=== PATIENT | female | born 1955 | race Two or more races ===

== ENCOUNTER 2022-01-02 22:02 | Emergency (ER) | payer OTHER, MEDICAID ==
[~2022-01-02] VITALS: Ht 160 cm; Wt 68.0 kg
[2022-01-02 22:19] VITALS: BP_SYST 156
--- NOTE | 2022-01-02 22:23 | NUR ---
PER PATIENT, HAS HAD RIGHT SIDED FLANK PAIN SINCE 12/28 AND SEEN AT AND TREATED FOR GALLSTONES AND UTI AND NOT GETTING BETTER.
[2022-01-02 23:58] LABS: BASOPHILS % (AUTO) 0.5 % (0.0-2.0); EOSINOPHILS # (AUTO) 0.2 K/uL (0.0-0.4); EOSINOPHILS % (AUTO) 3.3 % (0.0-4.0); HEMATOCRIT 36.8 % (36-48); HEMOGLOBIN 12.8 g/dL (12.0-16.0); LYMPHOCYTES # (AUTO) 1.6 K/uL (1.0-5.5); LYMPHOCYTES % (AUTO) 25.9 % (20.5-51.5); MEAN CORPUSCULAR HEMOGLOBIN 31 pg (27-31); MEAN CORPUSCULAR HGB CONC 35 % (32-36); MEAN CORPUSCULAR VOLUME 90 fL (79.0-98.0); MONOCYTES # (AUTO) 0.5 K/uL (0.0-1.0); MONOCYTES % (AUTO) 7.3 % (1.7-9.3); PLATELET COUNT (AUTO) 234 K/uL (130-430); RED BLOOD CELL COUNT(AUTO) 4.09 MIL/uL (4.2-6.2); RED CELL DISTRIBUTION WIDTH 12.9 % (9.0-15.0); WHITE BLOOD COUNT (AUTO) 6.3 K/uL (4.8-10.8)
[2022-01-02 23:59] LABS: CALCIUM 9.2 mg/dL (8.4-11.0); CREATININE 0.81 mg/dL (0.55-1.30); POTASSIUM 3.3 mmol/L (3.5-5.1)
[2022-01-03 00:05] LABS: ALBUMIN 4.1 g/dL (3.4-4.8); TOTAL BILIRUBIN 0.3 mg/dL (0.0-1.0)
[2022-01-03 01:38] LABS: BILIRUBIN,URINE NEGATIVE (NEGATIVE); BLOOD, URINE NEGATIVE (NEGATIVE); CLARITY/URINE CLEAR (CLEAR); COLOR,URINE YELLOW (YELLOW); GLUCOSE,URINE NEGATIVE (NEGATIVE); KETONES,URINE 1+ (NEGATIVE); LEUKOCYTE ESTERASE ,URINE NEGATIVE (NEGATIVE); NITRITE, URINE NEGATIVE (NEGATIVE); PROTEIN URINE NEGATIVE (NEGATIVE); UROBILINOGEN,URINE 0.2 (0.2-1.0)
--- NOTE | 2022-01-03 01:57 | NUR ---
Patient to ER bed 2 to gown for evaluation. Side rails up. Report given to Julianne MALAGON.
--- NOTE | 2022-01-03 02:38 | NUR ---
DR. PORRAS AT BEDSIDE.
--- NOTE | 2022-01-03 02:40 | NUR ---
Patient presents to ED from home with c/o flank pain x5days. Patient reports pain 7/10 at this time. Patient A/Ox4, VSS, ambulatory, resp even and unlabored. Patient lying in bed with side rails raised. Patient's at bedside. Patient states "About 5 days ago I went to urgent care because I was feeling pain, they gave me antibiotics and I've been taking them. I've had pain this whole time but today was the worst, so I came in because I couldnt take the pain anymore." Nad noted at this time.
[2022-01-03] MEDS ORDERED: NACL 0.9% 1,000 ML IV ONE (02:45)
[2022-01-03] MEDS ORDERED: cefTRIAXone 1 GM in D5W 50 ML IV ONE (02:45)
[2022-01-03] MEDS ORDERED: KETOROLAC TROMETHAMINE 30 MG VIAL IVP ONE (02:45)
--- NOTE | 2022-01-03 02:49 | NUR ---
PATIENT TO CT SCAN.
--- NOTE | 2022-01-03 03:20 | NUR ---
# 22 gauge angiocath placed to right wrist. Use of asceptic technique. Opsite placed over site. Blood return noted. Blood culture for lab drawn from site. Flushed with 10 cc of normal saline. No evidence of infiltration noted. Patient tolerated well.
[2022-01-03] MEDS ORDERED: cefTRIAXone 1 GM VIAL ONE (03:35)
--- NOTE | 2022-01-03 04:00 | NUR ---
Patient lying in bed with side rails raised. Patient's at bedside. Nad noted at this time.
[2022-01-03] MEDS ORDERED: MORPHINE 4 MG INJ. 4 MG/ML VIAL IVP ONE (05:15)
[2022-01-03] MEDS ORDERED: TRAM50TA PO (05:39)
[2022-01-03] MEDS ORDERED: CEFI400C2 PO (05:39)
[2022-01-03 05:54] VITALS: BP_SYST 147
--- NOTE | 2022-01-03 05:54 | NUR ---
Patient given written and verbal discharge instructions and verbalizes understanding. ER MD discussed with patient the results and treatment provided. Patient in stable condition. ID arm band removed. IV catheter removed intact and dressing applied, no active bleeding. Rx of cefixime and tramadol given. Patient educated on pain management and to follow up with PMD. Pain Scale 3/10. Opportunity for questions provided and answered. Medication side effect fact sheet provided.
== END 2022-01-03 05:54 | disposition home or self-care (01) ==
LOC: SED 22:02
DX: N12 Tubulo-interstitial nephritis, not specified as acute or chronic (principal); R10.31 Right lower quadrant pain; Z79.899 Other long term (current) drug therapy
CPT/HCPCS: 99284; 80053; 83690; 85025; 87040; 87086; 36415; 83605; 81003; 74176; 96365; 96375; 76376; J0696; J1885; J2270